=== PATIENT | male | born 1945 | race African-American/Black ===

== ENCOUNTER 2016-10-19 09:28 | Emergency (ER) | payer OTHER, MEDICAID ==
[~2016-10-19] VITALS: Ht 182.9 cm; Wt 90.7 kg
[2016-10-19 09:35] VITALS: BP_SYST 153
[2016-10-19 10:52] VITALS: BP_SYST 153
== END 2016-10-19 10:52 ==
LOC: SED 09:28
DX: M79.675 Pain in left toe(s) (principal); I10 Essential (primary) hypertension; J44.9 Chronic obstructive pulmonary disease, unspecified; Z88.0 Allergy status to penicillin
CPT/HCPCS: 99284